=== PATIENT | male | born 1980 | race Caucasian/White ===

== ENCOUNTER 2023-10-23 20:17 | Emergency (ER) | payer BC, OTHER ==
[2023-10-23 20:37] LABS: BASOPHILS ABSOLUTE AUTO 0.08 K/uL (0.00-0.20); BASOPHILS PERCENT AUTO 0.7 % (0.0-2.0); EOSINOPHILS ABSOLUTE AUTO 0.44 K/uL (0.00-0.50); EOSINOPHILS PERCENT AUTO 3.8 % (0.0-5.0); HEMATOCRIT 51.3 % (39.0-49.0); HEMOGLOBIN 17.7 g/dL (13.1-16.8); LYMPHOCYTES ABSOLUTE AUTO 4.35 K/uL (0.50-3.50); LYMPHOCYTES PERCENT AUTO 37.7 % (10.0-50.0); MEAN CORPUSCULAR HEMOGLOBIN 32.2 pg (28.2-33.3); MEAN CORPUSCULAR HGB CONC 34.5 g/dL (31.7-36.0); MEAN CORPUSCULAR VOLUME 93.3 fL (84.0-98.0); MONOCYTES ABSOLUTE AUTO 0.76 K/uL (0.00-1.00); MONOCYTES PERCENT AUTO 6.6 % (2.0-14.0); NEUTROPHILS PERCENT AUTO 51.2 % (45.0-80.0); PLATELET COUNT,PLT 280 K/uL (150-350); RED CELL DISTRIBUTION WIDTH 12.8 % (11.2-14.1); WHITE BLOOD CELL COUNT,WBC 11.5 K/uL (4.0-10.2)
[2023-10-23 20:49] LABS: ALANINE AMINOTRANSFERASE,ALT 43 U/L (12-78); ALBUMIN 3.8 g/dL (3.4-5.0); ALKALINE PHOSPHATASE 98 IU/L (46-116); ASPARTATE AMNIOTRANSFERASE,AST 23 U/L (15-37); BILIRUBIN TOTAL 0.2 mg/dL (0.2-1.0); BLOOD UREA NITROGEN,BUN 18 mg/dL (7-18); C-REACTIVE PROTEIN 0.31 mg/dL (0.05-0.30); CHLORIDE,CL 102 mmol/L (98-107); CREATININE 1.43 mg/dL (0.51-1.17); ESTIMATED GFR 62 mL/min (>=60); GLUCOSE RANDOM 107 mg/dL (70-99); POTASSIUM,K 3.6 mmol/L (3.5-5.1); PROTEIN TOTAL,TP 7.3 g/dL (6.4-8.2); SODIUM,NA 141 mmol/L (136-145)
[2023-10-23] MEDS: cloNIDine 0.1 MG Tab PO ONE (20:49)
== END 2023-10-23 22:16 | disposition home or self-care (01) ==
LOC: LL.ED 20:17
DX: I11.0 Hypertensive heart disease with heart failure (principal); F17.210 Nicotine dependence, cigarettes, uncomplicated; Z79.899 Other long term (current) drug therapy
CPT/HCPCS: 36415; 71046; 80053; 84484; 85025; 86140; 93005; 93010; 99284; A9270

== ENCOUNTER 2024-07-26 20:59 | Emergency (ER) | payer BC ==
[2024-07-26 21:23] LABS: BASOPHILS ABSOLUTE AUTO 0.05 K/uL (0.00-0.20); BASOPHILS PERCENT AUTO 0.4 % (0.0-2.0); EOSINOPHILS PERCENT AUTO 3.5 % (0.0-5.0); HEMATOCRIT 51.6 % (39.0-49.0); HEMOGLOBIN 17.8 g/dL (13.1-16.8); IMMATURE GRAN ABSOLUTE AUTO 0.15 10^3/uL (0.00-0.04); IMMATURE GRAN PERCENT AUTO 1.1 % (0.0-0.4); LYMPHOCYTES ABSOLUTE AUTO 3.39 K/uL (0.50-3.50); LYMPHOCYTES PERCENT AUTO 23.8 % (10.0-50.0); MEAN CORPUSCULAR HEMOGLOBIN 32.1 pg (28.2-33.3); MEAN CORPUSCULAR HGB CONC 34.5 g/dL (31.7-36.0); MONOCYTES ABSOLUTE AUTO 1.19 K/uL (0.00-1.00); MONOCYTES PERCENT AUTO 8.4 % (2.0-14.0); NEUTROPHILS ABSOLUTE AUTO 8.96 K/uL (1.40-7.00); NEUTROPHILS PERCENT AUTO 62.8 % (45.0-80.0); PLATELET COUNT,PLT 433 K/uL (150-350); RED BLOOD CELL COUNT 5.55 M/uL (4.33-5.41); RED CELL DISTRIBUTION WIDTH 11.7 % (11.2-14.1); WHITE BLOOD CELL COUNT,WBC 14.2 K/uL (4.0-10.2)
[2024-07-26 21:43] LABS: ALANINE AMINOTRANSFERASE,ALT 64 U/L (12-78); ALBUMIN 3.6 g/dL (3.4-5.0); ALKALINE PHOSPHATASE 126 IU/L (46-116); ANION GAP 8.7 meq/L (7-15); ASPARTATE AMNIOTRANSFERASE,AST 36 U/L (15-37); BILIRUBIN TOTAL 0.3 mg/dL (0.2-1.0); BLOOD UREA NITROGEN,BUN 13 mg/dL (7-18); CALCIUM 9.9 mg/dL (8.5-10.1); CARBON DIOXIDE,CO2 29.3 mmol/L (21.0-32.0); CHLORIDE,CL 102 mmol/L (98-107); CREATININE 1.31 mg/dL (0.51-1.17); GLUCOSE RANDOM 115 mg/dL (70-99); POTASSIUM,K 4.2 mmol/L (3.5-5.1); PROTEIN TOTAL,TP 7.5 g/dL (6.4-8.2); SODIUM,NA 140 mmol/L (136-145)
[2024-07-26 21:44] LABS: ESTIMATED GFR 69 mL/min (>=60)
== END 2024-07-26 22:24 | disposition home or self-care (01) ==
LOC: LL.ED 20:59
DX: J10.1 Influenza due to other identified influenza virus with other respiratory manifestations (principal); I10 Essential (primary) hypertension
CPT/HCPCS: 36415; 71046; 80053; 85025; 87428-QW; 99283